=== PATIENT | male | born 1950 | race Caucasian/White ===

== ENCOUNTER 2016-10-01 12:33 | Inpatient (IN) | payer MEDICARE ==
[~2016-10-01] VITALS: Ht 203.2 cm; Wt 175.9 kg
[2016-10-16] MEDS ORDERED: AMLO10 PO (09:37)
[2016-10-16] MEDS ORDERED: ENAL20TA PO (09:37)
[2016-10-16] MEDS ORDERED: METO100T PO (09:37)
[2016-10-16] MEDS ORDERED: WARF-23 PO (09:37)
[2016-10-16] MEDS ORDERED: FENO50TA PO (09:37)
[2016-10-16] MEDS ORDERED: ACET500T3 PO (09:37)
[2016-10-16] MEDS ORDERED: TERA10CA3 PO (09:37)
[2016-10-16] MEDS ORDERED: STOO100C PO (09:37)
[2016-10-16] MEDS ORDERED: LATA0.002 EACH EYE (09:37)
[2016-10-16] MEDS ORDERED: HYDR25TA5 PO (09:37)
[2016-10-16] MEDS ORDERED: GLIP5TAB8 PO (09:37)
[2016-10-16] MEDS ORDERED: MULT1TAB84 PO (09:37)
[2016-11-02 08:13] VITALS: BP 138/91; PULSE 68; RESP 20; TEMP 98.3; O2SAT 96
[2016-11-02] MEDS ORDERED: ceFAZolin 2 GM PREMIX 50 ML IV SCH (08:15)
[2016-11-02] MEDS ORDERED: TRANEXAMIC PERI-ARTICULAR 3,000 MG/NS 100 ML P-ARTICULR SCH ×2 (08:15)
[2016-11-02] MEDS ORDERED: ROPIVACAINE PERI-ARTICULAR INJECTION. PERIART SCH ×5 (08:15)
[2016-11-02] MEDS ORDERED: POVIDONE IODINE 7.5% SCRUB 118 ML BOTTLE TOP SCH (08:15)
[2016-11-02] MEDS ORDERED: VANCOMYCIN 1000 MG/NS 250 ML (for <70 kg) IV SCH ×2 (08:15)
[2016-11-02] MEDS ORDERED: DEXAMETHASONE SOD PHOS 20 MG/5 ML VIAL IV PUSH SCH (08:15)
[2016-11-02] MEDS ORDERED: CHLORHEXIDINE GLUCONATE 4% SOLN 120 ML BTL TOP SCH (08:15)
[2016-11-02] MEDS ORDERED: SODIUM CHLORIDE 0.9% IV SCH (08:15)
[2016-11-02] MEDS ORDERED: TRANEXAMIC ACID IV SCH (08:15)
[2016-11-02] MEDS ORDERED: BUPIVACAINE LIPOSOME NERV BLOCK SCH ×2 (08:15)
[2016-11-02] MEDS ORDERED: BUPIVACAINE HCL PF 0.5% 30 ML VIAL NERV BLOCK ONE ×2 (08:20→09:15)
[2016-11-02] MEDS ORDERED: LACTATED RINGER'S 1000 ML IV SCH (08:30)
[2016-11-02] MEDS ORDERED: SODIUM CHLORID 0.9% 500 ML IV SCH (08:30)
[2016-11-02] MEDS ORDERED: CHLORHEXIDINE GLUCONATE 2 % 1 PACK (2 CLOTHS) TOP SCH (08:30)
[2016-11-02] MEDS ORDERED: POVIDONE IODINE 5% (ANTISEPSIS KIT) 4 APPLICATIONS EACH NARE SCH (08:30)
[2016-11-02] MEDS ORDERED: METOPROLOL TARTRATE 25 MG TAB PO PRN (08:30)
[2016-11-02] MEDS ORDERED: INSULIN HUMAN REGULAR 1,000 UNITS/10 ML VIAL SQ PRN (08:30)
[2016-11-02 08:38] LABS: INTERNATIONAL NORMALIZED RATIO 1.1 RATIO; PROTHROMBIN TIME - PATIENT 12.2 SEC (9.8-11.6)
[2016-11-02] MEDS ORDERED: HYDR-3288 PO (08:55)
[2016-11-02] MEDS ORDERED: COUM5TAB PO (08:56)
[2016-11-02] MEDS ORDERED: ENOX40P SQ (08:56)
[2016-11-02] MEDS ORDERED: ZOLPIDEM TARTRATE 5 MG TAB PO PRN (09:00)
[2016-11-02] MEDS: METOPROLOL TARTRATE 100 MG TAB PO SCH ×2 (09:00→20:25)
[2016-11-02] MEDS ORDERED: NALOXONE HCL 0.4 MG/ML AMP IV PRN (09:00)
[2016-11-02] MEDS ORDERED: ONDANSETRON HCL 4 MG/2 ML VIAL IVP PRN (09:00)
[2016-11-02] MEDS ORDERED: Post-op Orders (for Pharmacy) MISC XX ONE (09:00)
[2016-11-02] MEDS ORDERED: diphenhydrAMINE HCL 50 MG/ML VIAL IV PRN (09:00)
[2016-11-02] MEDS: glipiZIDE 5 MG TAB PO SCH (09:00)
[2016-11-02] MEDS ORDERED: BISACODYL 10 MG SUPP PR PRN (09:00)
[2016-11-02] MEDS ORDERED: MORPHINE SULFATE 4 MG/ML INJ IV PUSH PRN (09:00)
[2016-11-02] MEDS ORDERED: ALUMINUM/MAGNESIUM/SIMETH 30 ML CUP PO PRN (09:00)
[2016-11-02] MEDS: ENALAPRIL MALEATE 10 MG TAB PO SCH ×2 (09:00→20:25)
[2016-11-02] MEDS ORDERED: ACETAMINOPHEN 1000 MG/100 ML VIAL IV ONE (09:24)
[2016-11-02] MEDS ORDERED: MIDAZOLAM HCL 5 MG/5 ML VIAL ONE (09:25)
[2016-11-02] MEDS ORDERED: FAMOTIDINE 20 MG/2 ML VIAL ONE (09:25)
[2016-11-02] MEDS ORDERED: GENTAMICIN SULFATE 80 MG/2 ML VIAL ONE (09:30)
[2016-11-02] MEDS ORDERED: PILL SPLITTER OTHER PRN (09:45)
[2016-11-02] MEDS ORDERED: SODIUM CHLORIDE 0.9% FLUSH 10 ML FLUSH IV FLUSH PRN (10:15)
[2016-11-02] MEDS: TERAZOSIN HCL 5 MG CAP PO SCH ×2 (10:15→20:28)
[2016-11-02] MEDS: SODIUM CHLORIDE 0.9% FLUSH 10 ML FLUSH IV FLUSH SCH ×2 (10:30→20:26)
[2016-11-02] MEDS ORDERED: ONDANSETRON HCL 4 MG/2 ML VIAL IV PUSH ONE (12:00)
[2016-11-02] MEDS ORDERED: PROPOFOL 200 MG/20 ML AMP IV ONE (12:00)
[2016-11-02] MEDS ORDERED: LACTATED RINGER'S 1000 ML INJ 1,000 ML IV ONE (12:00)
[2016-11-02] MEDS ORDERED: MORPHINE SULFATE 4 MG/ML INJ IV ONE (12:00)
[2016-11-02] MEDS ORDERED: NEOSTIGMINE 3 MG/3 ML SYR IV ONE (12:00)
[2016-11-02] MEDS ORDERED: fentaNYL CITRATE 250 MCG/5 ML AMP ONE (12:20)
[2016-11-02] MEDS ORDERED: *morphine SULFATE 8 MG/ML PERIprocedure ONLY ONE ×3 (13:20→14:39)
[2016-11-02] MEDS ORDERED: MIDAZOLAM HCL 2 MG/2 ML VIAL ONE (13:25)
[2016-11-02] MEDS: SODIUM CHLOR 0.9% 1000 ML INJ 1,000 ML IV SCH ×2 (14:00→20:25)
--- NOTE | 2016-11-02 14:03 | RADRPT ---
EXAM DATE/TIME: 11/02/2016 13:33 [facility] COMPARISON: No previous studies available for comparison. INDICATIONS : Post op left total knee. MEDICAL HISTORY : Unobtainable. SURGICAL HISTORY : Unobtainable. ENCOUNTER: Initial ACUITY: 1 day PAIN SCORE: Non-responsive. LOCATION: Left knee FINDINGS: AP and lateral views of the knee following arthroplasty reveals a prosthesis in anatomic alignment. F racture is not appreciated. Minimal intra-articular air is present. CONCLUSION: Status post total knee arthroplasty. Antonio Valdivia MD FACR Board Certified Radiologist. This report was verified electronically.
[2016-11-02] MEDS ORDERED: *LABETALOL HCL 100 MG/20 ML VIAL PERIprocedural Use ONLY ONE (14:35)
[2016-11-02 16:50] VITALS: BP 138/91; PULSE 78; RESP 16; TEMP 96.2; O2SAT 95
[2016-11-02] MEDS: WARFARIN SOD 5 MG TAB PO SCH (16:57)
[2016-11-02 20:22] VITALS: BP 142/92; PULSE 80; RESP 16; TEMP 98.1; O2SAT 96
[2016-11-03] VITALS (8 sets, daily range): BP systolic 112–129; BP diastolic 55–77; PULSE 71–95; RESP 16–21; TEMP 96.4–99.5; O2SAT 92–96
[2016-11-03] MEDS: SODIUM CHLOR 0.9% 1000 ML INJ 1,000 ML IV SCH ×2 (06:02→13:34)
[2016-11-03 06:16] LABS: HEMATOCRIT 35.9 % (39.0-51.0); MEAN CELL VOLUME 92.8 FL (80.0-100.0); MEAN CORPUSCULAR HEMOGLOBIN 32.1 PG (27.0-34.0); MEAN CORPUSCULAR HGB CONC 34.6 % (32.0-36.0); PLATELET COUNT 271 TH/MM3 (150-450); RED BLOOD COUNT 3.87 MIL/MM3 (4.50-5.90); RED CELL DISTRIBUTION WIDTH 13.3 % (11.6-17.2); REVIEW FLAG FINAL; WHITE BLOOD COUNT 10.7 TH/MM3 (4.0-11.0)
[2016-11-03 06:30] LABS: INTERNATIONAL NORMALIZED RATIO 1.1 RATIO; PROTHROMBIN TIME - PATIENT 12.4 SEC (9.8-11.6)
[2016-11-03 06:52] LABS: BICARBONATE 26.3 MEQ/L (21.0-32.0); POTASSIUM 3.4 MEQ/L (3.5-5.1)
[2016-11-03] MEDS: MAGNESIUM HYDROXIDE SUSP 30 ML CUP PO PRN (08:02)
[2016-11-03] MEDS: TERAZOSIN HCL 5 MG CAP PO SCH ×2 (08:02→21:18)
[2016-11-03] MEDS: ENALAPRIL MALEATE 10 MG TAB PO SCH ×2 (08:02→21:18)
[2016-11-03] MEDS: METOPROLOL TARTRATE 100 MG TAB PO SCH ×2 (08:03→21:18)
[2016-11-03] MEDS: glipiZIDE 5 MG TAB PO SCH (08:03)
[2016-11-03] MEDS: ACETAMINOPHEN/HYDROcodone 325 MG/7.5 MG TAB PO PRN ×4 (08:06→21:22)
[2016-11-03] MEDS: SODIUM CHLORIDE 0.9% FLUSH 10 ML FLUSH IV FLUSH SCH ×2 (08:07→21:00)
--- NOTE | 2016-11-03 08:14 | PD.ORT.PN ---
Subjective Post Op Day #: 1 Subjective Remarks pain tolerable. Objective Vitals Vital Signs Date Time Temp Pulse Resp B/P Pulse Ox O2 Delivery O2 Flow Rate FiO2 11/03/16 04:00 98.0 76 16 112/71 95 11/03/16 00:00 97.7 82 16 124/69 93 11/02/16 20:22 98.1 80 16 142/92 96 11/02/16 16:50 96.2 78 16 138/91 95 11/02/16 14:45 76 16 143/87 96 Nasal Cannula 2 11/02/16 14:30 86 16 140/86 96 Nasal Cannula 2 11/02/16 14:15 76 16 153/91 96 Nasal Cannula 2 11/02/16 14:00 82 16 144/90 96 Nasal Cannula 2 11/02/16 13:45 82 16 153/91 97 Nasal Cannula 2 11/02/16 13:30 90 16 147/98 96 Nasal Cannula 2 11/02/16 13:15 104 16 156/108 95 Nasal Cannula 2 11/02/16 13:08 98.0 102 16 151/83 9 Nasal Cannula 2 11/02/16 08:13 98.3 68 20 138/91 96 I/O 11/02/16 11/02/16 11/02/16 11/03/16 11/03/16 11/03/16 07:00 15:00 23:00 07:00 15:00 23:00 Intake Total 100 ml 432 ml 2631 ml Output Total 150 ml 100 ml 250 ml 550 ml Balance -50 ml 332 ml 2381 ml -550 ml Intake Oral 240 ml 1920 ml IV Total 100 ml 192 ml 711 ml Output Urine Total 150 ml 100 ml 250 ml 550 ml Bladder Scan Volume Amount 237 ml 446 ml # Voids 0 # Bowel Movements 0 Result Diagram: 11/03/16 0527 11/03/1627 Other Results Laboratory Tests Test 11/02/16 11/03/16 08:15 05:27 Prothrombin Time 12.2 SEC 12.4 SEC (9.8-11.6) (9.8-11.6) Prothromb Time International 1.1 RATIO 1.1 RATIO Ratio Imaging Last 24 hours Impressions Knee X-Ray 11/02/16 0851 Signed Impressions: Service Date/Time: Wednesday, November 02, 2016 13:33 - CONCLUSION: Status post total knee arthroplasty. Antonio Valdivia MD Objective Remarks in bed, nad dressing c/d/i neg tomas nvi Assessment & Plan Ortho Post Op Day #: 1 Problem List: Assessment and Plan s/p L TKA wbat daily dressing changes OOB and IS resume coumadin. lovenox bridge until INR 1.7 d/c planning home with [facility] and pt rx in chart f/up dr. boone 2 weeks Facundo Marin Nov 03, 2016 08:14
--- NOTE | 2016-11-03 08:16 | HHI.DCPOC ---
Discharge Care Plan Diagnosis: (1) Primary localized osteoarthrosis, lower leg Your Health Problems Are: Difficulty with ADL Goals to Promote Your Health * To prevent worsening of your condition and complications * To maintain your health at the optimal level Directions to Meet Your Goals Take your medications as prescribed Follow your dietary instruction Follow activity as directed Keep your appointments as scheduled Take your immunizations and boosters as scheduled If your symptoms worsen call your PCP, if no PCP go to Urgent Care Center or Emergency Room Smoking is Dangerous to Your Health. Avoid second hand smoke Call the 24-hour hour crisis hotline for domestic abuse at Facundo Marin Nov 03, 2016 08:16
--- NOTE | 2016-11-03 08:17 | HHI.FF ---
Face to Face Verification Diagnosis: (1) Primary localized osteoarthrosis, lower leg Physical Therapy Gait training, Safety evaluation, Transfer training, bed to chair Knee: Total knee, Protocol: Left, Full weight bearing Left LE Weight Bearing: WB as tolerated Nursing RN: 3 days/week x 2 weeks Nursing: Alexandra teaching, Dressing changes Dressing Changes: Daily dressing change I have seen patient Facundo Johnson on 11/03/16. My clinical findings support the need for the requested home health care services because: Limited ability to care for self High risk of falls I certify that my clinical findings support that this patient is homebound because: Post-op weakness Unsteady gait/balance Facundo Marin Nov 03, 2016 08:17
[2016-11-03] MEDS ORDERED: CPMMACHINE (08:18)
[2016-11-03] MEDS ORDERED: ADJUSTABLE COMM1 MIS (08:18)
[2016-11-03] MEDS ORDERED: WALKER/EXTENDED1 MIS (08:18)
--- NOTE | 2016-11-03 09:00 | PD.CONS ---
HPI Service [facility] Hospitalists Consult Requested By Dr. Facundo Beaulieu Reason for Consult Medical management Primary Care Physician Manny Cali MD Diagnoses: History of Present Illness Mr. Johnson is a pleasant 66 y/o male with atrial fibrillation on chronic anticoagulation with Coumadin, HTN, hyperlipidemia, and osteoarthritis. He was admitted on 11/02/16 for left total knee arthroplasty with Dr. Beauleiu. The [facility] Hospitalist team was consulted to help with medical management. His Coumadin was resumed on 11/02 with Lovenox bridging. Pt is seen post-operatively and is without any specific complaints. Review of Systems Constitutional: DENIES: Fever, Chills Respiratory: DENIES: Shortness of breath Cardiovascular: DENIES: Chest pain Gastrointestinal: DENIES: Abdominal pain, Nausea, Vomiting Musculoskeletal: COMPLAINS OF: Joint pain Integumentary: DENIES: Rash Neurologic: DENIES: Headache Psychiatric: DENIES: Confusion Past Family Social History Past Medical History Atrial fibrillation on chronic anticoagulation with Coumadin HTN Hyperlipidemia Osteoarthritis Diabetes Diabetic neuropathy Dominguez's esophagus Hx of TIA Glaucoma Past Surgical History Appendectomy Pilonidal cyst removal Cataract surgery Reported Medications Stool Softener (Docusate Sodium) 100 Mg Cap Unknown Dose PO WEEKLY Multivitamin Adults (Multiple Vitamins W/ Minerals) 1 Tab 1 Tab PO DAILY Acetaminophen 500 Mg Tab 1,000 Mg PO BID PRN Latanoprost Opth Drops (Latanoprost) 0.005% Drops 1 Drop EACH EYE HS Refrigerate until opened. Tricor (Fenofibrate) 145 Mg Tab 145 Mg PO DAILY Takw with food. Glipizide 5 Mg Tab 2.5 Mg PO DAILY Take 30 minutes before a meal Metoprolol Tartrate 100 Mg Tab 100 Mg PO BID Terazosin (Terazosin HCl) 10 Mg Cap 10 Mg PO BID Norvasc (Amlodipine Besylate) 10 Mg Tab 10 Mg PO DAILY Warfarin 5 Mg Tab 5 Mg PO DAILY Hydrochlorothiazide 25 Mg Tab 25 Mg PO EVENING Enalapril (Enalapril Maleate) 20 Mg Tab 20 Mg PO BID Allergies: Coded Allergies: No Known Allergies (Verified , 11/02/16) Family History Noncontributory Social History Denies any alcohol, tobacco or illicit drug use Physical Exam Vital Signs Vital Signs Date Time Temp Pulse Resp B/P Pulse Ox O2 Delivery O2 Flow Rate FiO2 11/03/16 04:00 98.0 76 16 112/71 95 3/28/17 00:00 97.7 82 16 124/69 93 11/02/16 20:22 98.1 80 16 142/92 96 11/02/16 16:50 96.2 78 16 138/91 95 11/02/16 14:45 76 16 143/87 96 Nasal Cannula 2 11/02/16 14:30 86 16 140/86 96 Nasal Cannula 2 11/02/16 14:15 76 16 153/91 96 Nasal Cannula 2 11/02/16 14:00 82 16 144/90 96 Nasal Cannula 2 11/02/16 13:45 82 16 153/91 97 Nasal Cannula 2 11/02/16 13:30 90 16 147/98 96 Nasal Cannula 2 11/02/16 13:15 104 16 156/108 95 Nasal Cannula 2 11/02/16 13:08 98.0 102 16 151/83 9 Nasal Cannula 2 Physical Exam GENERAL: This is a well-nourished, well-developed patient, in no apparent distress. HEENT: Atraumatic. Normocephalic. No temporal or scalp tenderness. No scleral icterus. Airway patent. NECK: Trachea midline, supple, nontender. CARDIO: Regular. RESP: CTA bilaterally. No wheezes, rales, or rhonchi. ABD: +BS, soft, non-tender, nondistended. EXT: Left knee bandages are c/d/i NEURO: Awake and alert. Motor and sensory grossly within normal limits. Normal speech. Laboratory Laboratory Tests Test 11/03/16 05:27 White Blood Count 10.7 Red Blood Count 3.87 Hemoglobin 12.4 Hematocrit 35.9 Mean Corpuscular Volume 92.8 Mean Corpuscular Hemoglobin 32.1 Mean Corpuscular Hemoglobin 34.6 Concent Red Cell Distribution Width 13.3 Platelet Count 271 Mean Platelet Volume 8.2 Prothrombin Time 12.4 Prothromb Time International 1.1 Ratio Sodium Level 137 Potassium Level 3.4 Chloride Level 100 Carbon Dioxide Level 26.3 Anion Gap 11 Blood Urea Nitrogen 21 Creatinine 1.45 Estimat Glomerular Filtration 48 Rate Random Glucose 162 Calcium Level 7.9 Result Diagram: 11/03/1627 11/03/1627 Imaging Last Impressions Knee X-Ray 11/02/16 0851 Signed Impressions: Service Date/Time: Wednesday, November 02, 2016 13:33 - CONCLUSION: Status post total knee arthroplasty. Antonio Valdivia MD Assessment and Plan Problem List: (1) Primary localized osteoarthrosis, lower leg Status: Chronic Plan: - Pt s/p Left total knee arthroplasty on 11/02/[address] Beaulieu - Post-op pain control per Ortho - IS - PT daily - Constipation precautions - Pt is on Lovenox and Coumadin (2) Atrial fibrillation Status: Chronic Plan: - Rate controlled - Cont. BB - Coumadin has been resumed with bridging with Lovenox (3) DM2 (diabetes mellitus, type 2) Status: Chronic Plan: - NovoLog SSI - Accu checks (4) Hypertension Status: Chronic Plan: - Stable - Home meds continued (5) History of CVA (cerebrovascular accident) Status: Chronic Assessment and Plan Patient examined. Assessment and plan formulated with Ranjana Simons PA-C. I agree with the above. Problem Qualifiers (1) Primary localized osteoarthrosis, lower leg: Qualified Code: M17.12 - Primary localized osteoarthrosis, lower leg, left (2) Atrial fibrillation: Qualified Code: I48.2 - Chronic atrial fibrillation Ranjana iSmons Nov 03, 2016 09:00 Francisco Monae DO Nov 05, 2016 23:37
[2016-11-03] MEDS ORDERED: DEXTROSE 50% IN WATER 50 ML VIAL(D50) IV PUSH PRN (09:30)
[2016-11-03] MEDS ORDERED: GLUCAGON 1 MG/ML VIAL OTHER PRN (09:30)
[2016-11-03] MEDS: ENOXAPARIN SODIUM 40 MG/0.4 ML SYRINGE SQ SCH (10:13)
[2016-11-03] MEDS: INSULIN ASPART SUPPLEMENTAL SCALE SQ SCH ×3 (10:15→21:00)
[2016-11-03] MEDS ORDERED: POTASSIUM CHLORIDE 20 MEQ CONTROLLED RELEASE TAB PO ONE (14:00)
[2016-11-03] MEDS: WARFARIN SOD 5 MG TAB PO SCH (15:26)
[2016-11-03] MEDS: DOCUSATE SODIUM 100 MG CAP PO SCH (21:18)
[2016-11-03] MEDS: MULTIVITAMINS/MINERALS THERAPEUTIC TAB PO SCH (21:18)
[2016-11-04 00:16] VITALS: BP 108/66; PULSE 85; RESP 21; TEMP 99.6; O2SAT 93
[2016-11-04] MEDS: SODIUM CHLOR 0.9% 1000 ML INJ 1,000 ML IV SCH ×3 (03:00→23:00)
[2016-11-04] MEDS: ACETAMINOPHEN/HYDROcodone 325 MG/7.5 MG TAB PO PRN ×3 (03:02→12:21)
[2016-11-04 06:07] LABS: BICARBONATE 30.8 MEQ/L (21.0-32.0); POTASSIUM 3.1 MEQ/L (3.5-5.1)
[2016-11-04 06:14] LABS: HEMATOCRIT 32.9 % (39.0-51.0); MEAN CELL VOLUME 92.9 FL (80.0-100.0); MEAN CORPUSCULAR HEMOGLOBIN 32.9 PG (27.0-34.0); MEAN CORPUSCULAR HGB CONC 35.4 % (32.0-36.0); PLATELET COUNT 255 TH/MM3 (150-450); RED BLOOD COUNT 3.54 MIL/MM3 (4.50-5.90); RED CELL DISTRIBUTION WIDTH 13.1 % (11.6-17.2); REVIEW FLAG FINAL; WHITE BLOOD COUNT 7.8 TH/MM3 (4.0-11.0)
[2016-11-04 06:19] LABS: INTERNATIONAL NORMALIZED RATIO 1.2 RATIO; PROTHROMBIN TIME - PATIENT 13.1 SEC (9.8-11.6)
[2016-11-04] MEDS: MAGNESIUM HYDROXIDE SUSP 30 ML CUP PO PRN (06:38)
[2016-11-04] MEDS: INSULIN ASPART SUPPLEMENTAL SCALE SQ SCH ×4 (07:00→21:00)
--- NOTE | 2016-11-04 08:09 | PD.ORT.PN ---
Subjective Post Op Day #: 2 Subjective Remarks pain tolerable. doing well. ready to go home. Objective Vitals Vital Signs Date Time Temp Pulse Resp B/P Pulse Ox O2 Delivery O2 Flow Rate FiO2 11/04/16 00:16 99.6 85 21 108/66 93 11/03/16 22:20 93 21 11/03/16 20:15 99.5 95 21 123/77 92 11/03/16 15:27 99.2 85 19 122/55 92 11/03/16 12:32 96 21 11/03/16 11:10 98.6 77 18 117/63 92 I/O 11/03/16 11/03/16 11/03/16 11/04/16 11/04/16 11/04/16 07:00 15:00 23:00 07:00 15:00 23:00 Intake Total 2631 ml 600 ml 480 ml 480 ml Output Total 250 ml 1000 ml 1010 ml 850 ml Balance 2381 ml -400 ml -530 ml -370 ml Intake Oral 1920 ml 600 ml 480 ml 480 ml IV Total 711 ml Output Urine Total 250 ml 1000 ml 1010 ml 850 ml Bladder Scan Volume Amount 237 ml 446 ml # Bowel Movements 0 0 Result Diagram: 11/04/16 0521 11/04/16 0521 Other Results Laboratory Tests Test 11/04/16 05:21 Prothrombin Time 13.1 SEC (9.8-11.6) Prothromb Time International 1.2 RATIO Ratio Imaging Last 24 hours Impressions Knee X-Ray 11/02/16 0851 Signed Impressions: Service Date/Time: Wednesday, November 02, 2016 13:33 - CONCLUSION: Status post total knee arthroplasty. Antonio Valdivia MD Objective Remarks in bed, nad incision no erythema, no drainage neg homans nvi Assessment & Plan Ortho Post Op Day #: 2 Problem List: Assessment and Plan s/p L TKA wbat daily dressing changes OOB and IS resume coumadin. lovenox bridge until INR 1.7 d/c planning home with [facility] and pt - cleared for d/c today needs walker with extensions rx in chart f/up dr. boone 2 weeks Facundo Marin Nov 04, 2016 08:09
[2016-11-04 09:00] VITALS: BP 125/72; PULSE 92; RESP 16; TEMP 99.7; O2SAT 92
[2016-11-04] MEDS: METOPROLOL TARTRATE 100 MG TAB PO SCH ×2 (09:34→21:00)
[2016-11-04] MEDS: ENALAPRIL MALEATE 10 MG TAB PO SCH ×2 (09:34→21:00)
[2016-11-04] MEDS: TERAZOSIN HCL 5 MG CAP PO SCH ×2 (09:34→21:00)
[2016-11-04] MEDS: MULTIVITAMINS/MINERALS THERAPEUTIC TAB PO SCH ×2 (09:35→21:00)
[2016-11-04] MEDS: DOCUSATE SODIUM 100 MG CAP PO SCH ×2 (09:35→21:00)
[2016-11-04] MEDS: glipiZIDE 5 MG TAB PO SCH (09:35)
[2016-11-04] MEDS: SODIUM CHLORIDE 0.9% FLUSH 10 ML FLUSH IV FLUSH SCH ×2 (09:38→21:00)
--- NOTE | 2016-11-04 10:55 | MP ---
cc: RAINA FELIPE DATE OF SURGERY: 11/02/2016 PREOPERATIVE DIAGNOSIS Left knee osteoarthritis. POSTOPERATIVE DIAGNOSES Left knee osteoarthritis. PROCEDURE Left total knee arthroplasty. SURGEON Dr. Raina Felipe. ETL ARCHITECT JOSELIN Roy ANESTHESIA General with a femoral nerve block. ESTIMATED BLOOD LOSS 100 ccs. TOURNIQUET TIME 59 minutes at 300 mmHg. COMPLICATIONS None. IMPLANTS USED DePuy attune size 10 posterior stabilized femoral component, size 10 rotating platform tibia baseplate, size 6 mm polyethylene tibial insert, size 41 mm patella. JUSTIFICATION This patient is a 66-year-old male with a history of severe end-stage osteoarthritis involving the left knee. He has severe disabling pain with standing, walking, ambulation, weight-bear activities, even severe pain at rest. He has failed greater than 3 months of nonoperative conservative treatment to include medication therapy, injections, ambulatory assisted aids, home exercise program, activity modification, weight loss attempts. X-rays of the left knee reveal severe end-stage osteoarthritis, [id number] joint space narrowing, subchondral sclerosis, subchondral cyst, osteophyte formation and varus deformity. The patient was counseled as to the risks, benefits and alternatives to a total knee arthroplasty. The risks were discussed which include but not limited to anesthesia, bleeding, infection, damage to nerves, blood vessels, pain, stiffness, failure of components, blood clots, pulmonary embolism and even . The patient's pain is severe, he favored the benefits over the risks and did wish to proceed with surgery. PROCEDURE IN DETAIL A written consent was obtained. The patient was identified by name, taken to the operating room and placed supine on the operating room table. General anesthesia was administered as well as 3 grams of IV Ancef and 1 gram of IV vancomycin. A well-padded tourniquet was placed on the left thigh. The left lower extremity was prepped and draped using isopropyl alcohol, Hibiclens solution and Chloraprep solution. After time-out was performed an Esmarch bandage was used to exsanguinate the left lower extremity. The tourniquet was inflated to 300 mmHg. A longitudinal incision was made over the anterior aspect of the left knee. A medial parapatellar arthrotomy was performed. The patella was everted. The patella resection guide was used to resect 9 mm of patella. The size 41 mm guide was placed, three drill holes were placed and a 41 mm trial fit well. Attention was turned to the femur where an intramedullary guide herbie was placed and distal femoral guide set to remove 11 mm of distal femur 5 degrees off the anatomic valgus axis alignment. I did choose an 11 mm because the patient has significant flexion contracture preoperatively. An oscillating saw was used to perform the distal femoral cut. Attention was turned to the tibia where extramedullary tibial guide was placed and the stylus set to remove 5 mm off the lowest portion of the medial tibial plateau. The tibia guide was pinned in place and tibia cut was performed. A 5-mm spacer block showed full extension. Attention was turned back to the femur. The AP sizing block measured a size 10. The anterior reference 3 degree external rotation guide was used to pin the size [address] The anterior, posterior and chamfer cuts were performed. The size 10 PCL box cut was pinned in place. PCL was boxed out with an oscillating saw. The medial and lateral meniscus remnants were removed as well as bone and soft tissue ___ of the knee. A size 10 tibia baseplate was pinned in place, the tibia was drilled and punched. Trial components were evaluated and final components cemented in place. With the 6-mm tibial insert the leg could achieve full extension 0 degrees of flexion to 140, no evidence of tibial lift-off, varus-valgus balance appeared appropriate and symmetric. The knee was thoroughly irrigated with sterile saline solution. Tourniquet was deflated. Bovie cautery was used for hemostasis. After thorough irrigation and debridement the arthrotomy was closed with #1 Vicryl suture, subcutaneous layer with 2-0 Vicryl suture. Skin was closed with Dermabond. Sterile dressing was applied. The patient tolerated the procedure well with no intraoperative complications noted. Bryson Marin, physician student assistant certified was present during the entire procedure to include patient positioning, the procedure itself. The medical necessity of physician student assistant was indicated in this case due to the complexity of the procedure. He assisted with appropriate manipulation of the leg and also traction of muscle, tendon, bone, neurovascular structure. He assisted with both preparation of bone cuts and also implantation of prosthetic replacement. MD JOE Ridley/LEON /12:42 PM /10:25 AM
[2016-11-04 11:42] VITALS: BP 102/66; PULSE 92; RESP 19; TEMP 98; O2SAT 93
[2016-11-04] MEDS: ENOXAPARIN SODIUM 40 MG/0.4 ML SYRINGE SQ SCH (12:20)
[2016-11-04] MEDS: POTASSIUM CHLORIDE 20 MEQ CONTROLLED RELEASE TAB PO SCH ×2 (12:20→14:00)
[2016-11-04 15:45] VITALS: BP 118/61; PULSE 90; RESP 18; TEMP 99.6; O2SAT 95
[2016-11-04] MEDS: WARFARIN SOD 5 MG TAB PO SCH (16:50)
[2016-11-04] MEDS ORDERED: POTASSIUM CHLORIDE 20 MEQ CONTROLLED RELEASE TAB PO ONE (17:15)
[2016-11-04 19:30] VITALS: BP 144/76; PULSE 97; RESP 18; TEMP 101.4; O2SAT 94
[2016-11-04 21:30] VITALS: TEMP 99.9
[2016-11-05 00:04] VITALS: BP 137/69; PULSE 83; RESP 20; TEMP 97.6; O2SAT 94
[2016-11-05] MEDS: ACETAMINOPHEN/HYDROcodone 325 MG/7.5 MG TAB PO PRN ×2 (06:04→09:53)
[2016-11-05 06:43] LABS: MEAN CELL VOLUME 93.8 FL (80.0-100.0); MEAN CORPUSCULAR HEMOGLOBIN 31.9 PG (27.0-34.0); PLATELET COUNT 235 TH/MM3 (150-450); RED BLOOD COUNT 3.84 MIL/MM3 (4.50-5.90); RED CELL DISTRIBUTION WIDTH 13.5 % (11.6-17.2); REVIEW FLAG FINAL; WHITE BLOOD COUNT 7.9 TH/MM3 (4.0-11.0)
[2016-11-05 06:49] LABS: INTERNATIONAL NORMALIZED RATIO 1.1 RATIO; PROTHROMBIN TIME - PATIENT 12.7 SEC (9.8-11.6)
[2016-11-05] MEDS: INSULIN ASPART SUPPLEMENTAL SCALE SQ SCH ×3 (06:56→15:45)
[2016-11-05 07:07] LABS: BICARBONATE 26.7 MEQ/L (21.0-32.0); POTASSIUM 3.6 MEQ/L (3.5-5.1)
--- NOTE | 2016-11-05 07:52 | PD.ORT.PN ---
Subjective Post Op Day #: 3 Subjective Remarks pain tolerable. doing well. ready to go home. did not receive his walker as of yet even though it was ordered more than 2 weeks ago. waiting on walker for d/ c. Objective Vitals Vital Signs Date Time Temp Pulse Resp B/P Pulse Ox O2 Delivery O2 Flow Rate FiO2 11/05/16 00:04 97.6 83 20 137/69 94 11/04/16 21:30 99.9 11/04/16 19:30 101.4 97 18 144/76 94 11/04/16 15:45 99.6 90 18 118/61 95 11/04/16 11:42 98.0 92 19 102/66 93 11/04/16 09:00 99.7 92 16 125/72 92 I/O 11/04/16 11/04/16 11/04/16 11/05/16 11/05/16 11/05/16 07:00 15:00 23:00 07:00 15:00 23:00 Intake Total 480 ml 480 ml 480 ml 480 ml Output Total 850 ml 300 ml 510 ml 700 ml Balance -370 ml 180 ml -30 ml -220 ml Intake Oral 480 ml 480 ml 480 ml 480 ml Output Urine Total 850 ml 300 ml 510 ml 700 ml # Bowel Movements 0 0 0 Result Diagram: 11/05/16 0554 11/05/16 0554 Other Results Laboratory Tests Test 11/05/16 05:54 Prothrombin Time 12.7 SEC (9.8-11.6) Prothromb Time International 1.1 RATIO Ratio Imaging Last 24 hours Impressions Knee X-Ray 11/02/16 0851 Signed Impressions: Service Date/Time: Wednesday, November 02, 2016 13:33 - CONCLUSION: Status post total knee arthroplasty. Antonio Valdivia MD Objective Remarks in bed, nad dressing c/d/i neg homans nvi Assessment & Plan Ortho Post Op Day #: 3 Problem List: Assessment and Plan s/p L TKA wbat daily dressing changes OOB and IS resume coumadin. lovenox bridge until INR 1.7 d/c planning home with [facility] and pt - d/c was held yesterday as his walker has yet to arrive. walker was ordered more than 2 weeks ago. supposed to be delivered today. safe for d/c when walker arrives. needs walker with extensions rx in chart f/up dr. boone 2 weeks Facundo Marin Nov 05, 2016 07:52
[2016-11-05 08:00] VITALS: BP 148/86; PULSE 86; RESP 19; TEMP 98.1; O2SAT 94
[2016-11-05] MEDS: SODIUM CHLORIDE 0.9% FLUSH 10 ML FLUSH IV FLUSH SCH (09:00)
[2016-11-05] MEDS: SODIUM CHLOR 0.9% 1000 ML INJ 1,000 ML IV SCH (09:00)
[2016-11-05] MEDS: MULTIVITAMINS/MINERALS THERAPEUTIC TAB PO SCH (09:52)
[2016-11-05] MEDS: METOPROLOL TARTRATE 100 MG TAB PO SCH (09:52)
[2016-11-05] MEDS: TERAZOSIN HCL 5 MG CAP PO SCH (09:52)
[2016-11-05] MEDS: DOCUSATE SODIUM 100 MG CAP PO SCH (09:52)
[2016-11-05] MEDS: ENALAPRIL MALEATE 10 MG TAB PO SCH (09:53)
[2016-11-05] MEDS: glipiZIDE 5 MG TAB PO SCH (09:53)
[2016-11-05 09:55] VITALS: O2SAT 96
[2016-11-05] MEDS: MAGNESIUM HYDROXIDE SUSP 30 ML CUP PO PRN (09:56)
[2016-11-05] MEDS: ENOXAPARIN SODIUM 40 MG/0.4 ML SYRINGE SQ SCH (11:21)
[2016-11-05 11:44] VITALS: BP 114/71; PULSE 85; RESP 20; TEMP 99.9; O2SAT 94
[2016-11-05] MEDS: WARFARIN SOD 5 MG TAB PO SCH (15:45)
--- NOTE | 2016-11-11 14:37 | MD ---
cc: RAINA BEAULIEU ADMISSION DATE: 11/02/2016 DISCHARGE DATE: 11/05/2016 ADMITTING DIAGNOSIS Severe degenerative osteoarthritis left knee DISCHARGE DIAGNOSIS Severe degenerative osteoarthritis left knee HISTORY OF PRESENT ILLNESS Mr. Johnson is a 66-year-old male who presented to the [facility] for evaluation by Dr. Raina Beaulieu regarding his severe and progressive left knee pain. The patient states his pain has been bothering him for many years but is currently inhibiting his ability to ambulate. He notes his pain is aggravated by weightbearing activities and he has no alleviating factors, although he has tried medications, bracing, physical therapy, home exercise program, as well as injections without significant relief of symptoms. He does have x-ray evidence of severe degenerative osteoarthritis of left knee. While in the office, the patient was counseled on his diagnosis and treatment options. The risks, benefits, indications all were discussed in great detail. The patient did elect to proceed with surgical intervention to include a left total knee arthroplasty. Date of surgery 11/02/2016, left total knee arthroplasty. Postop after surgery, the patient admitted to [facility] where he received appropriate medical management, pain control, DVT prophylaxis. The patient's Coumadin was restarted postoperatively and he has been receiving Lovenox as a bridge. DISCHARGE Once being discharged from the hospital, the patient is cleared to go home where he will receive home health care and home physical therapy. He is in stable condition. The patient may weight-bear as tolerated. He is to receive daily dressing changes and has been instructed on appropriate wound care management. The patient has been provided prescriptions for pain control, as well as Lovenox until his Coumadin INR becomes therapeutic. He has been provided with a follow-up appointment to see Dr. Raina Beaulieu in the office in approximately two weeks from the day of surgery. The patient has asked appropriate questions which have been answered. Patient is cleared for discharge. Dictated by JOSELIN Gonzales MD JOE Ridley/RONEY /8:13 AM /2:29 PM
== END 2016-11-05 17:57 | disposition home or self-care (01) | DRG 470 ==
LOC: HSDI 11-02 06:54 → N06B 11-02 15:36
PROVIDERS: ADMIT Orthopaedic Surgery Sports Medicine; ATTEND Orthopaedic Surgery Sports Medicine
PROC: 3E0T3CZ (ICD-10-PCS; 2016-11-02)
PROC: 0SRD0J9 Replacement of Left Knee Joint with Synthetic Substitute, Cemented, Open Approach (ICD-10-PCS; principal; 2016-11-02 10:09)
DX: M17.12 Unilateral primary osteoarthritis, left knee (principal); E11.40 Type 2 diabetes mellitus with diabetic neuropathy, unspecified; I48.2 Chronic atrial fibrillation; I10 Essential (primary) hypertension; E78.5 Hyperlipidemia, unspecified; K22.70 Barrett's esophagus without dysplasia; H40.9 Unspecified glaucoma; Z86.73 Personal history of transient ischemic attack (TIA), and cerebral infarction without residual deficits; Z79.01 Long term (current) use of anticoagulants; Z79.84 Long term (current) use of oral hypoglycemic drugs
CPT/HCPCS: 73560; 80048; 82948; 85027; 85610; 86850; 86900; 86901; 94150; C1776; J0131; J0171; J0690; J0735; J1100; J1580; J1650; J1885; J2250; J2270; J2405; J2710; J2795; J3010; J3370; J7030; J7050; J7120; L1830

== ENCOUNTER → 2016-10-16 | Outpatient (CLI) | payer MEDICARE ==
[~2016-10-16] MED LIST: ACET325S8 PO; ACET500T3 PO; ADJUSTABLE COMM1 MIS; AMLO10 PO; COUM5TAB PO; CPMMACHINE; DOCU1CAP39 PO; ENAL20TA PO; ENAL20TA81 PO; ENOX40P SQ; FENO50TA PO; GLIP5 PO; GLIP5TAB8 PO; HYDR-2768 PO; HYDR-3288 PO; HYDR25TA5 PO; LATA0.002 EACH EYE; METO100 PO; METO100T PO; MULT1TAB84 PO; NORV10TA PO; STOO100C PO; TAB-TAB PO; TERA10CA3 PO; WALKER/EXTENDED1 MIS; WARF-23 PO; WARF2.5T40 PO; WARF5 PO; XALA0.00 EACH EYE
[2016-10-16 09:53] LABS: AUTOMATED NEUTROPHIL # 3.2 TH/MM3 (1.8-7.7); BASOPHIL # 0.1 TH/MM3 (0-0.2); EOSINOPHIL # 0.2 TH/MM3 (0-0.4); EOSINOPHIL % 2.6 % (0.0-4.0); HEMATOCRIT 44.2 % (39.0-51.0); HEMO FLAGS DIFF FINAL; LYMPH % 32.2 % (9.0-44.0); LYMPHOCYTE # 1.9 TH/MM3 (1.0-4.8); MEAN CORPUSCULAR HEMOGLOBIN 31.8 PG (27.0-34.0); MEAN CORPUSCULAR HGB CONC 34.2 % (32.0-36.0); MONO % 7.8 % (0.0-8.0); NEUT % 55.4 % (16.0-70.0); PLATELET COUNT 313 TH/MM3 (150-450); RED BLOOD COUNT 4.75 MIL/MM3 (4.50-5.90); RED CELL DISTRIBUTION WIDTH 13.1 % (11.6-17.2); WHITE BLOOD COUNT 5.8 TH/MM3 (4.0-11.0)
[2016-10-16 10:03] LABS: APTT (PATIENT) 36.9 SEC (24.3-30.1); INTERNATIONAL NORMALIZED RATIO 2.7 RATIO; PROTHROMBIN TIME - PATIENT 30.8 SEC (9.8-11.6)
[2016-10-16 10:11] LABS: BLOOD, URINE NEG (NEG); COMMENT (UR) CULT NOT INDICATED; CULTURE IF INDICATED CULT NOT INDICATED; GLUCOSE,URINE NEG (NEG); GRANULAR CAST, URINE 2 /lpf; KETONE, URINE NEG (NEG); MUCUS URINE FEW /lpf (OCC); NITRITE,URINE NEG (NEG); SQUAMOUS EPITHELIAL CELL URINE 1 /hpf (0-5); URINE COLOR YELLOW (YELLW/STRAW)
[2016-10-16 10:16] LABS: ALKALINE PHOSPHATASE 32 U/L (45-117); ALT (GPT) 23 U/L (12-78); ANION GAP 10 MEQ/L (5-15); AST (GOT) 22 U/L (15-37); BICARBONATE 29.9 MEQ/L (21.0-32.0); BLOOD UREA NITROGEN 20 MG/DL (7-18); CHLORIDE 102 MEQ/L (98-107); GLOMERULAR FILTRATION RATE 50 ML/MIN (>89); GLUCOSE,FASTING 154 MG/DL (74-99); POTASSIUM 3.2 MEQ/L (3.5-5.1); SODIUM (NA) 142 MEQ/L (136-145); TOTAL BILIRUBIN ADULT 0.7 MG/DL (0.2-1.0)
[2016-10-16 10:18] LABS: WESTERGREN SEDIMENTATION RATE 1 mm/hr (0-20)
--- NOTE | 2016-10-16 11:47 | RADRPT ---
EXAM DATE/TIME: 10/16/2016 11:28 [facility] COMPARISON: CHEST SINGLE AP, April 11, 2014, 20:39. INDICATIONS : Evaluate for pneumonia, pneumothorax or communicable disease. MEDICAL HISTORY : Stroke. Pre-Op left total knee. SURGICAL HISTORY : None. ENCOUNTER: Initial ACUITY: 1 day PAIN SCORE: Non-responsive. LOCATION: chest FINDINGS: PA and lateral views of the chest demonstrate the lungs to be symmetrically aerated without evidence of mass, infiltrate or effusion. The cardiomediastinal contours are unremarkable. Osseous structure s are intact. CONCLUSION: No evidence of acute cardiopulmonary disease. Alhaji Seo MD on October 16, 2016 at 11:45 Board Certified Radiologist. This report was verified electronically.
--- NOTE | 2016-10-16 18:52 | EKG ---
Date Performed: 10/16/2016 Time Performed: 09:23:35 PTAGE: 66 years EKG: ATRIAL FIBRILLATION LEFT ANTERIOR FASCICULAR BLOCK INFERIOR MYOCARDIAL INFARCTION, PROBABLY OLD Nonspecific ST and T wave abnormalities ABNORMAL ECG Compared to the PREVIOUS TRACING from 04/11/14, no significant change DOCTOR: Nicolas Jean Interpretating Date/Time 10/16/2016 18:50:58
== END ==
LOC: CPRE 08:37
PROVIDERS: ATTEND Orthopaedic Surgery Sports Medicine
DX: Z01.810 Encounter for preprocedural cardiovascular examination (principal); Z01.812 Encounter for preprocedural laboratory examination; M25.50 Pain in unspecified joint; M17.12 Unilateral primary osteoarthritis, left knee; I48.91 Unspecified atrial fibrillation; I44.4 Left anterior fascicular block; Z79.01 Long term (current) use of anticoagulants
CPT/HCPCS: 36415; 71020; 80053; 81001; 85025; 85610; 85652; 85730; 93005

== ENCOUNTER 2016-11-09 16:25 | Emergency (ER) | payer MEDICARE ==
[~2016-11-09] VITALS: Ht 193 cm; Wt 161.5 kg
[~2016-11-09 16:25] MED LIST changes: -ACET325S8 PO; -ACET500T3 PO; -DOCU1CAP39 PO; -ENAL20TA81 PO; -GLIP5 PO; -HYDR-2768 PO; -METO100 PO; -NORV10TA PO; -TAB-TAB PO; -WARF2.5T40 PO; -WARF5 PO; -XALA0.00 EACH EYE
[2016-11-09 16:29] VITALS: BP 139/72; PULSE 88; RESP 24; TEMP 97.9; O2SAT 94
--- NOTE | 2016-11-09 17:04 | PD ---
Physical Exam Date Seen by Provider: Nov 09, 2016 Time Seen by Provider: 17:02 Narrative 66 YOWM L LEG PAIN AND SWELLING. DR FELIPE REPLACED L KNEE LAST WEEK. HERE FOR DOPPLER. NO CP OR SOB. ON COUMADIN AND LOVENOX. VSS. AWAITING BED PLACEMENT. Data Data Last Documented VS Vital Signs Date Time Temp Pulse Resp B/P Pulse Ox O2 Delivery O2 Flow Rate FiO2 11/09/16 16:29 97.9 88 24 139/72 94 Room Air [facility] Medical Record Reviewed: Yes Supervised Visit with OPAL: Yes Justice Peterson Nov 09, 2016 17:04
--- NOTE | 2016-11-09 19:51 | RADRPT ---
EXAM DATE/TIME: 11/09/2016 19:18 [facility] COMPARISON: No previous studies available for comparison. INDICATIONS : Left leg pain and swelling. Post left knee replacement last week. MEDICAL HISTORY : CVA. Afib. Hypercholesterol. Hypertension. SURGICAL HISTORY : Appendectomy. Cervical discectomy. ENCOUNTER: Initial ACUITY: 3 days PAIN SCORE: 6/10 LOCATION: Left leg. TECHNIQUE: Venous ultrasound of the leg was performed from the inguinal ligament to the proximal calf. Real-yvette e, color Doppler and spectral tracing, compression and augmentation techniques were used. FINDINGS: There is normal compressibility of the deep venous system from the inguinal region to the proximal ca lf. No echogenic clot is seen in the lumen of the common femoral, femoral, popliteal, and posterior tibial veins. There is a normal response of the venous system to proximal and distal augmentation an d respiration. CONCLUSION: Normal examination. Tootie Cueva MD on November 09, 2016 at 19:49 Board Certified Radiologist. This report was verified electronically.
--- NOTE | 2016-11-09 20:32 | PD ---
HPI Chief Complaint: Injury Time Seen by Provider: 20:18 Travel History International Travel<30 days: No Contact w/Intl Traveler<30days: No Traveled to known affect area: No History of Present Illness HPI This is a 66-year-old male who presents for evaluation. The patient had a left total knee replacement on November [address] Beaulieu. Since then he's had pain and swelling and bruising in the left leg. He called his orthopedist today who recommended he come here for ultrasound the leg to rule out DVT. He's had no fevers. He is able to perform range of motion activities with the left wrist although with some pain. He has had no injuries. He has been a bleeding with a walker. He has been seeing physical therapy. He is currently on Lovenox and Coumadin for anticoagulation. He has no other complaints. PFSH Past Medical History Hx Anticoagulant Therapy: Yes Arthritis: Yes (B KNEES) Asthma: No Autoimmune Disease: No Blood Disorders: No Anxiety: No Depression: No Heart Rhythm Problems: No Cancer: No Cardiovascular Problems: Yes (AFIB) High Cholesterol: Yes Chemotherapy: No Chest Pain: No Congestive Heart Failure: No COPD: No Cerebrovascular Accident: Yes (2000) Diabetes: Yes (ON GLIPIZIDE) Diminished Hearing: No Endocrine: Yes GERD: Yes Glaucoma: No Genitourinary: Yes (FREQUENCY) Headaches: No Hepatitis: No Hiatal Hernia: No Hypertension: Yes Immune Disorder: No Kidney Stones: No Musculoskeletal: Yes Neurologic: Yes Psychiatric: No Reproductive: No Respiratory: No Myocardial Infarction: No Radiation Therapy: No Renal Failure: No Seizures: No Sickle Cell Disease: No Sleep Apnea: No Thyroid Disease: No Ulcer: Yes Past Surgical History Abdominal Surgery: Yes (APPENDECTOMY) AICD: No Appendectomy: Yes Arteriovenous Shunt: No Body Medical Devices: NONE Cardiac Surgery: No Ear Surgery: No Endocrine Surgery: No Eye Surgery: Yes (BRIONNA CATARACT) Genitourinary Surgery: Yes (VASECTOMY) Gynecologic Surgery: No Joint Replacement: Yes (LTK) Oral Surgery: Yes (TONSILLECTOMY) Pacemaker: No Thoracic Surgery: No Social History Alcohol Use: Yes (DRINKS A BEER OR GLASS OF WINE Q DAY) Tobacco Use: No Substance Use: No Allergies-Medications (Allergen,Severity, Reaction): Coded Allergies: No Known Allergies (Verified , 11/09/16) Reported Meds & Prescriptions Reported Meds & Active Scripts Active Adjustable Commode 3-in-1 (Device) 1 Mis Mis 1 Ea .ROUTE DIRECTED Walker/Extended Frame (Device) 1 Mis Mis 1 Ea .ROUTE DIRECTED CPM-Continuous Passive Motion Machine 1 Ea Device 1 Ea .ROUTE DIRECTED Lovenox Inj (Enoxaparin Sodium) 40 Mg/0.4 Ml Syr 40 Mg SQ DAILY Coumadin (Warfarin) 5 Mg Tab 5 Mg PO DAILY [place] (Hydrocodone-Acetaminophen) 7.5-325 mg Tab 1-2 Tab PO Q6H PRN Reported Stool Softener (Docusate Sodium) 100 Mg Cap Unknown Dose PO WEEKLY Multivitamin Adults (Multiple Vitamins W/ Minerals) 1 Tab 1 Tab PO DAILY Latanoprost Opth Drops (Latanoprost) 0.005% Drops 1 Drop EACH EYE HS Refrigerate until opened. Tricor (Fenofibrate) 145 Mg Tab 145 Mg PO DAILY Takw with food. Glipizide 5 Mg Tab 2.5 Mg PO DAILY Take 30 minutes before a meal Metoprolol Tartrate 100 Mg Tab 100 Mg PO BID Terazosin (Terazosin HCl) 10 Mg Cap 10 Mg PO BID Norvasc (Amlodipine Besylate) 10 Mg Tab 10 Mg PO DAILY Warfarin 5 Mg Tab 5 Mg PO DAILY Hydrochlorothiazide 25 Mg Tab 25 Mg PO EVENING Enalapril (Enalapril Maleate) 20 Mg Tab 20 Mg PO BID Review of Systems Except as stated in HPI: all other systems reviewed are Neg Physical Exam Narrative GENERAL: Well-developed well-nourished male in no acute distress SKIN: Warm and dry. Anterior left knee surgical site is intact. Multiple [place] are in place, there is no wound dehiscence or drainage. There is ecchymosis around the knee joint. There is no erythema. HEAD: Atraumatic. Normocephalic. EYES: Pupils equal and round. No scleral icterus. No injection or drainage. ENT: No nasal bleeding or discharge. Mucous membranes pink and moist. NECK: Trachea midline. No JVD. CARDIOVASCULAR: Regular rate and rhythm. No murmur appreciated. RESPIRATORY: No accessory muscle use. Clear to auscultation. Breath sounds equal bilaterally. GASTROINTESTINAL: Abdomen soft, non-tender, nondistended. Hepatic and splenic margins not palpable. MUSCULOSKELETAL: Skin and joint as noted above. There is 1-2+ pitting edema in the lower extremities bilaterally. There is some pain on palpation of the anterior left lower leg. There is no tenderness to palpation of the left knee joint. The patient is able to actively perform range of motion from approximately 75-150. The joint is not erythematous. NEUROLOGICAL: Awake and alert. No obvious cranial nerve deficits. Motor grossly within normal limits. Normal speech. Data Data Last Documented VS Vital Signs Date Time Temp Pulse Resp B/P Pulse Ox O2 Delivery O2 Flow Rate FiO2 11/09/16 16:29 97.9 88 24 139/72 94 Room Air Orders Us Leg Venous Doppler (11/09/16 17:06) [facility] Medical Decision Making Medical Screen Exam Complete: Yes Emergency Medical Condition: Yes Medical Record Reviewed: Yes Differential Diagnosis Postoperative edema, ecchymosis, DVT, septic arthritis Narrative Course 66-year-old male status post left total knee replacement on November 02 sent here to rule out DVT. Doppler ultrasound left leg is negative. He has some ecchymosis about the left knee joint and he has decent range of motion. There is no evidence of a septic joint. The wound is intact with no dehiscence. The patient was reassured. He is encouraged to follow-up with his orthopedist. Discussed signs and symptoms of a septic joint that would warrant return to the emergency room a verbalizes understanding. Diagnosis Primary Impression: Postoperative pain of left knee Additional Impression: Ecchymosis Referrals: Facundo Beaulieu MD Additional Instructions: Follow-up with Dr. Beaulieu as scheduled. Ambulate with walker as instructed. Continue to use your at home pain medication as needed. Return for any new or worsening symptoms such as high fevers, increased pain and redness of the left knee joint. Med/Other Pt SpecificInfo: Wound Care Disposition: DISCHARGE HOME Condition: Stable Jero Mike Nov 09, 2016 20:32
== END 2016-11-09 21:16 | disposition home or self-care (01) ==
LOC: NETRI 16:25
DX: G89.18 Other acute postprocedural pain (principal); R58 Hemorrhage, not elsewhere classified; I48.91 Unspecified atrial fibrillation; E78.00 Pure hypercholesterolemia, unspecified; E11.9 Type 2 diabetes mellitus without complications; I10 Essential (primary) hypertension; Z79.4 Long term (current) use of insulin; Z79.01 Long term (current) use of anticoagulants; Z86.73 Personal history of transient ischemic attack (TIA), and cerebral infarction without residual deficits; Z96.652 Presence of left artificial knee joint
CPT/HCPCS: 93971